=== PATIENT | female | born 2000 | race Two or more races ===

== ENCOUNTER 2019-03-30 11:01 | Emergency (ER) | payer SELFPAY ==
[~2019-03-30] VITALS: Ht 160 cm; Wt 90.7 kg
[2019-03-30 11:23] VITALS: BP 137/91
--- NOTE | 2019-03-30 11:24 | PHYS DOC ---
Adult General Chief Complaint Chief Complaint: PLEURISY HPI HPI Patient's 19-year-old female presents for evaluation of left-sided chest pain. Anterior. Onset 3 days ago. She reports dull pain, nonradiating. Worse with touch. No significant pain on awakening notes pain "when I start work." Pain seems to improve at the end of her work day while resting. She reports dyspnea on exertion but denies exertional and pleuritic chest pain. No hemoptysis. No cough or congestion. No fever. Denies injury. No leg pain or swelling. No recent travel or surgery. No history of family history of deep vein thrombosis/pulmonary embolism. Not Currently on oral contraceptive or hormone replacement therapy. No history of cancer. Nonsmoker. Review of Systems Review of Systems Constitutional: Denies fever or chills [] Eyes: Denies change in visual acuity, redness, or eye pain [] HENT: Denies nasal congestion or sore throat [] Respiratory: Denies cough or shortness of breath [] Cardiovascular: No additional information not addressed in HPI [] GI: Denies abdominal pain, nausea, vomiting, bloody stools or diarrhea [] : Denies dysuria or hematuria [] Musculoskeletal: Denies back pain or joint pain [] Integument: Denies rash or skin lesions [] Neurologic: Denies headache, focal weakness or sensory changes [] Endocrine: Denies polyuria or polydipsia [] All other systems were reviewed and found to be within normal limits, except as documented in this note. Family History Family History Denies family history of deep vein thrombosis/pulmonary embolism, ACS, TAD/AAA. Allergies Allergies Allergies Coded Allergies Type Severity Reaction Last Updated Verified No Known Drug Allergies 03/30/19 No Physical Exam Physical Exam Constitutional: Well developed, well nourished, no acute distress, non-toxic appearance. [] HENT: Normocephalic, atraumatic, oropharynx moist, no oral exudates, nose normal. [] Eyes: PERRLA, EOMI, conjunctiva normal, no discharge. [] Neck: Normal range of motion, no tenderness, supple, no stridor. [] Cardiovascular:Heart rate regular rhythm, no murmur [] Lungs & Thorax: Bilateral breath sounds clear to auscultation. No rash. L anterior chest wall ttp. [] Abdomen: Bowel sounds normal, soft, no tenderness, no masses, no pulsatile masses. [] Skin: Warm, dry, no erythema, no rash. [] Back: No tenderness, no CVA tenderness. [] Extremities: No LE tenderness, no cyanosis, no clubbing, ROM intact, no edema. [] Neurologic: Alert and oriented X 3, normal motor function, normal sensory function, no focal deficits noted. [] Psychologic: Affect normal, judgement normal, mood normal. [] Current Patient Data Vital Signs Vital Signs Date Time Temp Pulse Resp B/P (MAP) Pulse Ox O2 Delivery O2 Flow Rate FiO2 03/30/19 11:23 98.6 101 16 137/91 (106) 99 Room Air 98.6 EKG EKG [] 1137- nsr at 94. no acute ST elevation. no S1Q3T3. nl intervals. Radiology/Procedures Radiology/Procedures [] Signed PATIENT: LOVE MYERSACCOUNT: [id number] : 2000 LOCATION: ER AGE: 19 SEX: F EXAM STATUS: REG ER ORD. PHYSICIAN: JOHN MIRANDA APRN REASON: L CP, SOA. PROCEDURE: CHEST PA & LATERAL CHEST PA LATERAL History: Shortness of breath, left-sided chest pain Comparison: None. Findings: Frontal and lateral views of chest were obtained. The cardiomediastinal silhouette is normal. Pulmonary vasculature is normal. The lungs are clear. No pleural effusion or pneumothorax is seen. There is no acute bone abnormality. IMPRESSION: No acute cardiopulmonary process. Electronically signed by: Darin Maloney MD (03/30/2019 11:50 AM) [facility] DICTATED and SIGNED BY: DARIN MALONEY MD DATE: 03/30/19 1150 Course & Med Decision Making Course & Med Decision Making Pertinent Labs and Imaging studies reviewed. (See chart for details) []In summary patient presents with L CP and BAUTISTA. Exam benign. No signs of DVT on exam. Her only risk for DVT/PE is obesity. No pleuritic or exertional CP. PERC 8/8. No further testing for PE is warranted at this time. Pain is reproducible to palpation, does not appear consistent with PE/ACS/TAD. Will rx NSAID. Rec close f/u with PCP. Strict return precautions reviewed with patient. To f/u as directed and return if worse. Yariel Disclaimer Yariel Disclaimer This electronic medical record was generated, in whole or in part, using a voice recognition dictation system. Departure Departure Impression: Primary Impression: Chest wall pain Disposition: HOME, SELF-CARE Condition: STABLE Referrals: NO PCP (PCP) Patient Instructions: Chest Wall Pain Scripts Diclofenac Sodium (DICLOFENAC SODIUM) 75 Mg Tablet.dr 1 TAB PO BID, #20 TAB 1 Refill Prov: JOHN MIRANDA APRN 03/30/19 JOHN MIRANDA APRN Mar 30, 2019 11:24
--- NOTE | 2019-03-30 11:53 | RAD ---
CHEST PA LATERAL History: Shortness of breath, left-sided chest pain Comparison: None. Findings: Frontal and lateral views of chest were obtained. The cardiomediastinal silhouette is normal. Pulmonary vasculature is normal. The lungs are clear. No pleural effusion or pneumothorax is seen. There is no acute bone abnormality. IMPRESSION: No acute cardiopulmonary process. Electronically signed by: Darin Smith MD (03/30/2019 11:50 AM) [facility]
[2019-03-30] MEDS ORDERED: DICL75TA PO (12:32)
== END 2019-03-30 13:49 | disposition home or self-care (01) ==
LOC: ER 11:01
DX: R07.89 Other chest pain (principal); R06.00 Dyspnea, unspecified
CPT/HCPCS: 71046; 99284